=== PATIENT | male | born 1985 | race Caucasian/White ===

== ENCOUNTER 2018-05-09 20:57 | Emergency (ER) | payer MEDICAID ==
[2018-05-09] MEDS: TETRACAINE 0.5% 4 ML OPH LEFT EYE (23:40)
[2018-05-09] MEDS: FLUORESCEIN STRIP LEFT EYE (23:40)
== END 2018-05-10 00:19 | disposition home or self-care (01) ==
LOC: FTE 05-10 00:19
DX: H10.9 Unspecified conjunctivitis (principal); E11.9 Type 2 diabetes mellitus without complications; Z79.84 Long term (current) use of oral hypoglycemic drugs
CPT/HCPCS: 99283; Z7502